=== PATIENT | female | born 1985 | race Caucasian/White ===

== ENCOUNTER 2017-05-06 07:16 | Inpatient (IN) | payer OTHER ==
--- NOTE | 2017-05-06 05:56 | PCM.LDHP ---
L&D History of Present Illness - General Date of Service: 05/06/17 Admit Problem/Dx: Admission Diagnosis/Problem Admission Diagnosis/Problem 05/06/17 05:34 40-2/7 week intrauterine , induction of labor Source of Information: Patient History Limitations: Reports: No Limitations - History of Present Illness Introduction:: Colette is a 32-year-old 3 para 1012 white female who is admitted for induction of labor. She is 40-2/7 weeks with an VINCENT of 05/04/2017 as based upon a certain last menstrual period which started on 10/10/2016. Dating is supported by 2 ultrasounds done on 10/10/2016 and 12/24/2016. When seen last on 04/30/2017 patient was 2+ centimeters dilated, 90% effaced, very soft, -3 station, mid position. Induction land's with artificial rupture membranes with Pitocin augmentation as indicated. The patient has had a relatively unremarkable course. [employer] history 3 para 1012. Patient's had 2 previous pregnancies 1 with twins which delivered on 09/28/2014 at 37-2/7 weeks gestational age after 16 hours labor she delivered weighing 4 lbs. 9 oz. and 5 lbs. 6 oz. via normal spontaneous vaginal delivery. She had an epidural with labor. She did have retained placenta hemorrhage and received 2 units of blood. 2 children's names are Deng and Danelle. Patient also had a miscarriage in June 2013, first trimester, aborted spontaneously. Her menarche was at approximately age 11 her last menstrual period was definite and patient's resulted resulted from invitro fertilization. Her course was relatively unremarkable. She is a centering patient. She declined genetic evaluation. Inverted depression screening score was 01 skill 30 on 12/25/2016. She did have Gardnerella vaginalis which was treated. She is group B strep positive on urine culture results. She is hypothyroid and on replacement therapy. He has been clinically euthyroid throughout the . Patient plans to do cord blood banking. Patient plans to nurse. She wishes to use epidural again with this labor. She is rubella nonimmune and therefore is a candidate for measles, mumps and rubella vaccination in . Patient was seen early in the with first visit on 10/10/2016 at 10-4/7 weeks. She had excellent weight gain during the course of the from 124 -146.8 pounds 422.8 pound weight gain. Her vital signs remained stable throughout the course and her fundal height growth was appropriate. labs: Blood is A+ with a negative antibiotic screen. First hemoglobin was 13.1 g/dL and platelets were 379,000. She is rubella nonimmune. RPR is nonreactive. Strep screen was positive on urine culture at first visit. Gardnerella vaginalis was also identified. This was treated. Her initial TSH was 1.1 daily units per liter which was normal. Second trimester labs included hemoglobin which is normal at 12.3 g/dL and a platelet count 297,000. One-hour GTT was 106. Group B strep screen again was positive. Allergies wheat, dairy, right eye N [place]. No known drug allergies Medications: 1. vitamins daily 2. Levothyroxine 25 g daily Past medical history: 1. Hypothyroidism on replacement meds with clinically euthyroid status 2. Spontaneous 2012 3. Vaginal delivery of twin boys 2014 4. 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 In vitro fertilization with resulting 5. Gluten sensitivity 6. History of retained placenta last delivery with hemorrhage and transfusion. Past surgical history: 1. Laparoscopy, lysis of adhesions and creation paula-fimbria 2. D&C 3. Hysteroscopy 4. Chromotubation 5. Tonsillectomy 6. Left scopic cholecystectomy 7. [place] teeth extraction Family history: Mother with type 2 diabetes and hypertension. Father with hypertension and thyroid cancer. Patient has 10 brothers-one with seizure disordertrauma induced. 6 sisters2 with hypothyroidism. Maternal grandmother is secondary to breast cancer. Maternal grandfather cause unknown. Paternal grand mother , cause unknown. Paternal grand father , cause unknown. Social history: Patient is , is Fernando.. She lives in [place], works for [employer]. She does not use any significant amounts of alcohol drugs or tobacco. Review of systems: In general patient is having no concerns. Baby is been active Heart: No chest pain or exercise intolerance Respiratory: No shortness of breath or infectious symptoms Breasts: Changes associated . Patient does plan to breast-feed. GI: Negative : Normal changes associated . Musculoskeletal: Negative. Occasional edema noted. Neurological: Negative Physical exam: On last evaluation clinic patients weight was 146.8 with pregravid weight seen 124. Her blood pressure 112/58 and heart rate is 127. In general patient is a well-developed, well-nourished, pleasant white female in no acute distress. She is alert and oriented 3 and appears of stated age and a good historian. Skin is warm and dry without lesions. HEENT, neck and back within normal limits Lungs are clear with good breath sounds in all lung arciniega. Cardiovascular exam shows regular rate and rhythm without murmurs. Breast exam deferred Having been done at first visit and found to be normal. Abdomen is protuberant Jeanine's last fundal height of 37+ centimeters, baby in vertex presentation by Gorge maneuvers. Cervical exam shows cervix to be 2+ centimeters dilated, 90% effaced, very soft , -3, mid position with head well applied to the cervix. Extremities and neurological exam are grossly within normal limits. - Related Data Allergies/Adverse Reactions: Allergies Allergy/AdvReac Type Severity Reaction Status Date / Time wheat Allergy Intermediate Indigestion Verified 09/27/14 17:11 Dairy Products Allergy Indigestion Verified 09/27/14 17:11 cantaloupe Allergy Indigestion Uncoded 09/27/14 17:11 Home Medications: Home Meds Levothyroxine 25 mcg PO DAILY 04/08/14 [History] PNV95/Ferrous Fumarate/FA [ Tablet] 1 tab PO DAILY 04/08/14 [History] Ibuprofen [Motrin] 600 mg PO Q4H PRN #30 tablet 10/01/14 [Rx] Lanolin [Lansinoh HPA] 1 applic TOP ASDIRECTED PRN #30 crm 10/01/14 [Rx] Past Medical History Other OB/BYN History: bilateral salpingotomy, invitro fertilization, Other Endocrine/Metabolic History: on levothyroxine 25mcg for marlyn 1 year Social & Family History - Tobacco Use Smoking Status *Q: Former Smoker (quit 2004) Second Hand Smoke Exposure: No - Recreational Drug Use Recreational Drug Use: No H&P Review of Systems - Review of Systems: Review Of Systems: See Below L&D Exam - Exam Exam: See Below Problem List Initiated/Reviewed/Updated: Yes Assessment/Plan Comment:: Assessment: 1. 40-2/7 week intrauterine , admitted for induction of labor 2. Group B strep positive status-candidate for prophylaxis with ampicillin 3. Rubella nonimmune-candidate for MMR 4. Desires epidural in labor and delivery for analgesia 5. Patient plans to breast-feed 6. The is result of In vitro fertilization 7. Patient plans to bank cord blood. Will bring kit with her to the hospital. 8. Hypothyroidism-on replacement and clinically euthyroid 9. Patient participated in centering program 10. Patient declined genetic evaluation Plan: 1. Artificial rupture membranes induction of labor, Pitocin augmentation as necessary. 2. Ampicillin per protocol for group B strep positive status 3. Epidural in labor delivery when necessary per patient desire 4. Support breast-feeding decision 5. Have lab participate with cord blood banking by drying mom's blood. 6. MMR after delivery
[2017-05-06] MEDS ORDERED: ePHEDrine 50 MG/ML SDV IVPUSH PRN (07:52)
[2017-05-06] MEDS ORDERED: diphenhydrAMINE 50 MG/ML SDV IVPUSH PRN (07:52)
[2017-05-06] MEDS ORDERED: fentaNYL 100 MCG/2 ML SDV EPIDUR PRN (07:52)
[2017-05-06] MEDS ORDERED: Bupivacaine/fentaNYL/NS 100 ML Bag EPIDUR SCH (08:00)
[2017-05-06] MEDS ORDERED: Ondansetron 4 MG/2 ML SDV IVPUSH PRN (09:11)
[2017-05-06] MEDS ORDERED: Lidocaine 1% 50 ML MDV INJECT ONE (09:11)
[2017-05-06] MEDS ORDERED: Sodium Chloride 0.9% 10 ML Syringe FLUSH PRN (09:11)
[2017-05-06] MEDS ORDERED: Nalbuphine 20 MG/1 ML Amp IVPUSH PRN (09:11)
[2017-05-06] MEDS ORDERED: Ampicillin 2 GM in Sodium Chloride 0.9% 100 ML IV ONE (09:11)
[2017-05-06] MEDS: Oxytocin/Lactated Ringers 10 UNIT/1,000 ML BAG IV SCH ×2 (09:44→15:46)
[2017-05-06] MEDS: Lactated Ringers 1,000 ML IV SCH ×3 (09:44→13:29)
--- NOTE | 2017-05-06 11:57 | PCM.PREANE ---
Preanesthetic Assessment - Anesthesia/Transfusion/Family Hx Anesthesia History: Prior Anesthesia Without Reaction Family History of Anesthesia Reaction: No Transfusion History: Prior Transfusion Without Reaction - Review of Systems General: No Symptoms Pulmonary: No Symptoms Cardiovascular: No Symptoms Gastrointestinal: No Symptoms Neurological: No Symptoms Other: Reports: None - Physical Assessment Pulse: 92 O2 Sat by Pulse Oximetry: 97 Respiratory Rate: 18 Blood Pressure: 118/75 Temperature: 37.3 C Vital Signs: Last Vital Signs Temp 37.6 C 05/06/17 09:30 Pulse 92 05/06/17 09:30 Resp 18 05/06/17 09:30 BP 118/75 05/06/17 09:30 Pulse Ox Height: 1.55 m Weight: 65.635 kg ASA Class: 2 Mental Status: Alert & Oriented x3 Airway Class: Mallampati = 1 Dentition: Reports: Normal Dentition Thyro-Mental Finger Breadths: 3 Mouth Opening Finger Breadths: 3 ROM/Head Extension: Full Lungs: Clear to Auscultation, Normal Respiratory Effort Cardiovascular: Regular Rate, Regular Rhythm - Lab Values: Laboratory Last Values WBC 10.67 K/mm3 (3.98-10.04) H 05/06/17 08:00 RBC 4.44 M/mm3 (3.98-5.22) 05/06/17 08:00 Hgb 13.4 gm/L (11.2-15.7) 05/06/17 08:00 Hct 39.8 % (34.1-44.9) 05/06/17 08:00 MCV 89.6 fl (79.4-94.8) 05/06/17 08:00 MCH 30.2 pg (25.6-32.2) 05/06/17 08:00 MCHC 33.7 g/dl (32.2-35.5) 05/06/17 08:00 RDW Std Deviation 41.8 fL (36.4-46.3) 05/06/17 08:00 Plt Count 284 K/mm3 (182-369) 05/06/17 08:00 MPV 12.3 fl (9.4-12.3) 05/06/17 08:00 Neut % (Auto) 73.7 % (34.0-71.1) H 05/06/17 08:00 Lymph % (Auto) 18.6 % (19.3-51.7) L 05/06/17 08:00 [place] % (Auto) 6.5 % (4.7-12.5) 05/06/17 08:00 Eos % (Auto) 0.5 (0.7-5.8) L 05/06/17 08:00 Baso % (Auto) 0.2 % (0.1-1.2) 05/06/17 08:00 Neut # (Auto) 7.88 K/mm3 (1.56-6.13) H 05/06/17 08:00 Lymph # (Auto) 1.98 K/mm3 (1.18-3.74) 05/06/17 08:00 [place] # (Auto) 0.69 K/mm3 (0.24-0.36) H 05/06/17 08:00 Eos # (Auto) 0.05 K/mm3 (0.04-0.36) 05/06/17 08:00 Baso # (Auto) 0.02 K/mm3 (0.01-0.08) 05/06/17 08:00 - Allergies Allergies/Adverse Reactions: Allergies Allergy/AdvReac Type Severity Reaction Status Date / Time wheat AdvReac Intermediate Indigestion Verified 05/06/17 07:54 Dairy Products AdvReac Indigestion Verified 05/06/17 07:54 - Anesthesia Plan Pre-Op Medication Ordered: None - Acknowledgements Anesthesia Type Planned: Epidural Pt an Appropriate Candidate for the Planned Anesthesia: Yes Alternatives and Risks of Anesthesia Discussed w Pt/Guardian: Yes Pt/Guardian Understands and Agrees with Anesthesia Plan: Yes PreAnesthesia Questionnaire HEENT History: Reports: Impaired Vision Gastrointestinal History: Reports: GERD [employer] MANAGER History: Reports: , Spontaneous , Other (See Below) Other OB/BYN History: IVF, hx retained placenta Endocrine/Metabolic History: Reports: Hypothyroidism Other Endocrine/Metabolic History: on levothyroxine 25mcg for marlyn 1 year - Infectious Disease History Infectious Disease History: Reports: Human Papilloma Virus (HPV), Other (See Below) Other Infectious Disease History: hx chlamydia - Past Surgical History HEENT Surgical History: Reports: Oral Surgery, Tonsillectomy GI Surgical History: Reports: Cholecystectomy Female Surgical History: Reports: D&C, Other (See Below) Other Female Surgeries/Procedures: Salpingectomy, chromotubation, hysteroscopy - SUBSTANCE USE Smoking Status *Q: Never Smoker Tobacco Use Within Last Twelve Months: No Second Hand Smoke Exposure: No Recreational Drug Use History: No - HOME MEDS Home Medications: Home Meds Levothyroxine 25 mcg PO DAILY 04/08/14 [History] PNV95/Ferrous Fumarate/FA [ Tablet] 1 tab PO DAILY 04/08/14 [History] - CURRENT (IN HOUSE) MEDS Current Meds: Current Medications Diphenhydramine HCl (Benadryl) 25 mg IVPUSH Q6H PRN PRN Reason: Itching Ephedrine Sulfate (Ephedrine Sulfate) 5 mg IVPUSH ASDIRECTED PRN PRN Reason: HYPOTENTSION Fentanyl (Sublimaze) 100 mcg EPIDUR Q3H PRN PRN Reason: PAIN Last Admin: 05/06/17 11:46 Dose: 100 mcg Fentanyl/Bupivacaine HCl (Fentanyl/Bupivacaine/Ns 2 Mcg-0.125% 100 Ml) 100 ml EPIDUR ASDIRECTED ANY Last Admin: 05/06/17 11:47 Dose: 100 ml Ampicillin Sodium 1 gm/ Sodium (Chloride) 100 mls @ 200 mls/hr IV Q4H ANY Lactated Ringer's (Ringers, Lactated) 1,000 mls @ 100 mls/hr IV ASDIRECTED ANY Last Admin: 05/06/17 09:44 Dose: 100 mls/hr Oxytocin/Lactated Ringer's (Pitocin In Lr 10 Units/1,000 Ml) 10 unit in 1,000 mls @ 12 mls/hr IV TITRATE ANY; 2 MUNITS/MIN PRN Reason: Protocol Last Titration: 05/06/17 10:32 Dose: 8 munits/min, 48 mls/hr Nalbuphine HCl (Nubain) 10 mg IVPUSH Q2H PRN PRN Reason: Pain (moderate 4-6) Ondansetron HCl (Zofran) 4 mg IVPUSH Q4H PRN PRN Reason: Nausea/Vomiting Sodium Chloride (Saline Flush) 10 ml FLUSH ASDIRECTED PRN PRN Reason: Keep Vein Open Discontinued Medications Ampicillin Sodium 2 gm/ Sodium (Chloride) 100 mls @ 200 mls/hr IV ONETIME ONE Stop: 05/06/17 09:40 Last Admin: 05/06/17 09:42 Dose: 200 mls/hr Lidocaine HCl (Xylocaine 1%) 10 ml INJECT ONETIME ONE Stop: 05/06/17 09:12
[2017-05-06] MEDS: Ampicillin 1 GM in Sodium Chloride 0.9% 100 ML IV SCH ×2 (13:29→19:24)
--- NOTE | 2017-05-06 17:23 | PCM.SN ---
- Free Text/Narrative Note: Colette is a 32-year-old 3 para 2013 female who was admitted on the a.m. of 05/06/2017 for elective induction of labor at 40-2/7 weeks gestational age. Initial cervical evaluation showed 3 cm, 90% effacement, very soft consistency, mid position, -4 station. Bag of ruvalcaba was intact. Baby is spell presentation. Her VINCENT was 05/04/2017 based upon in vitro fertilization dating. She was started on Pitocin to bring the baby's head down against the cervix and artificial rupture membranes was performed and resulted in clear amniotic fluid. Patient progressed in labor and became complete at approximately 1440 hrs. And pushing and pushed through 2 contractions with successful delivery of a viable, goodman, male infant with Apgars of 9 and 9, weight of 3030 g (6 pounds 10.9 ounces), length 20 inches with delivery occurring in an occiput anterior position. The perineum was intact and no lacerations were present. Pitocin was administered IV after delivery of baby to facilitate increase in uterine tone and decrease the likelihood of bleeding. The umbilical cord had 3 vessels, was clamped 2 and cut by the father. Cord bloods obtained. The placenta was found to be mildly adherent but delivered intact and complete. It was discarded patient desire. Estimated blood loss was 100 mL. Patient plans to breast-feed. Condition: Good
[2017-05-06] MEDS ORDERED: Witch Hazel Medicated Pads 100/Jar TOP PRN (19:19)
[2017-05-06] MEDS ORDERED: Lanolin 100% Cream 7 GM Tube TOP PRN (19:19)
[2017-05-06] MEDS ORDERED: Benzocaine/Menthol 20%-0.5% Spray 56 GM Canister TOP PRN (19:19)
[2017-05-06] MEDS ORDERED: Docusate Sodium 100 MG Cap PO PRN (19:19)
[2017-05-06] MEDS ORDERED: Acetaminophen 325 MG Tab PO PRN (19:19)
[2017-05-06] MEDS ORDERED: Ibuprofen 600 MG Tab PO PRN (19:19)
[2017-05-06] MEDS ORDERED: Bupivacaine 0.25% 10 ML SDV ONE (22:22)
--- NOTE | 2017-05-07 07:54 | PCM.SN ---
- Free Text/Narrative Note: PPD#1 patient is doing well. Minimal lochia, nursing well. She is ambulating without problemsand and nursing without concerns. Afebrile, VSS abdomen-soft,NT legs- NT Hb-11.9 Plts 246 A/P: PP day #1 good progress. Routine cares.
--- NOTE | 2017-05-07 08:48 | PCM48HPAN ---
Post Anesthesia Note - EVALUATION WITHIN 48HRS OF ANESTHETIC Vital Signs in Normal Range: Yes Patient Participated in Evaluation: Yes Respiratory Function Stable: Yes Airway Patent: Yes Cardiovascular Function Stable: Yes Hydration Status Stable: Yes Pain Control Satisfactory: Yes Nausea and Vomiting Control Satisfactory: Yes Mental Status Recovered: Yes
[2017-05-07] MEDS: Prenatal Multivitamin with Calcium/Folic Acid/Iron Tab PO SCH (09:10)
[2017-05-08 05:31] VITALS: BP 111/55
--- NOTE | 2017-05-08 05:53 | PCM.DCSUM1 ---
Discharge Summary - Hospital Course Free Text/Narrative:: Colette is a 32-year-old 3 para 2013 female who was admitted on the a.m. of 05/06/2017 for elective induction of labor at 40-2/7 weeks gestational age. Initial cervical evaluation showed 3 cm, 90% effacement, very soft consistency, mid position, -4 station. Bag of ruvalcaba was intact. Baby is spell presentation. Her VINCENT was 05/04/2017 based upon in vitro fertilization dating. She was started on Pitocin to bring the baby's head down against the cervix and artificial rupture membranes was performed and resulted in clear amniotic fluid. Patient progressed in labor and became complete at approximately 1440 hrs. And pushing and pushed through 2 contractions with successful delivery of a viable, goodman, male with Apgars of 9 and 9, weight of 3030 g (6 pounds 10.9 ounces), length 20 inches with delivery occurring in an occiput anterior position. The perineum was intact and no lacerations were present. Pitocin was administered IV after delivery of baby to facilitate increase in uterine tone and decrease the likelihood of bleeding. The umbilical cord had 3 vessels, was clamped 2 and cut by the father. Cord bloods obtained. The placenta was found to be mildly adherent but delivered intact and complete. It was discarded patient desire. Estimated blood loss was 100 mL. Patient plans to breast-feed. patient has done well. She is nursing without concerns. She is ambulating well and has minimal lochia. Her vital signs were stable and patient has been afebrile. She is desiring to go home on day 2. - Discharge Data Discharge Date: 05/08/17 Discharge Disposition: Home, Self-Care 01 Condition: Good - Patient Instructions Diet: Regular Diet as Tolerated (Nursing diet with increased calories and calcium as recommended) Activity: As Tolerated (No intercourse or tampons until bleeding resolves) Driving: May Drive Today Showering/Bathing: May Shower (May take a bath) Notify Provider of: Fever, Increased Pain, Swelling and Redness, Nausea and/or Vomiting - Discharge Plan Home Medications: Home Meds Levothyroxine 25 mcg PO DAILY 04/08/14 [History] PNV95/Ferrous Fumarate/FA [ Tablet] 1 tab PO DAILY 04/08/14 [History] Acetaminophen [Tylenol] 650 mg PO Q4H PRN tablet 05/08/17 [Rx] Ibuprofen [IJD: Ibuprofen] 600 mg PO Q4H PRN tablet 05/08/17 [Rx] Referrals: Zeb Castillo MD [Primary Care Provider] - (Return to clinicDr. Castillo2 weeks.) - Discharge Summary/Plan Comment DC Time >30 min.: No Discharge Summary/Plan Comment: Discharge instructions: 1. Discharge home 2. Diet, activity and follow-up discussed with patient. Recommend nursing diet with increased calories and calcium. 3. Precautions given concern increased pain, bleeding, temperature, signs/ symptoms of DVT/PE. 4. Medications per home medication was printed, discussed with and given to the patient. 5. Return to clinic-Dr. Castillo[facility] in 2 weeks. Diagnosis: Term -delivered Condition: Good - Patient Data Vitals - Most Recent: Last Vital Signs Temp 36.3 C 05/08/17 03:58 Pulse 70 05/08/17 03:58 Resp 16 05/08/17 03:58 BP 111/55 L 05/08/17 03:58 Pulse Ox 96 05/08/17 03:58 Weight - Most Recent: 65.635 kg I&O - Last 24 hours: Intake & Output 05/07/17 05/07/17 05/08/17 14:59 22:59 06:59 Intake Total 0 180 Balance 0 180 Lab Results - Last 24 hrs: Laboratory Results - last 24 hr 05/07/17 Range/Units 05:30 WBC 14.69 H (3.98-10.04) K/mm3 RBC 3.93 L (3.98-5.22) M/mm3 Hgb 11.9 (11.2-15.7) gm/L Hct 35.8 (34.1-44.9) % MCV 91.1 (79.4-94.8) fl MCH 30.3 (25.6-32.2) pg MCHC 33.2 (32.2-35.5) g/dl RDW Std Deviation 41.7 (36.4-46.3) fL Plt Count 246 (182-369) K/mm3 MPV 11.7 (9.4-12.3) fl Med Orders - Current: Current Medications Acetaminophen (Tylenol) 650 mg PO Q4H PRN PRN Reason: mild pain or fever Benzocaine/Menthol (Dermoplast Pain Relief [place]) 0 gm TOP ASDIRECTED PRN PRN Reason: Perineal Comfort Measure Docusate Sodium (Colace) 100 mg PO BID PRN PRN Reason: Constipation Emollient Ointment (Lansinoh Hpa) 0 gm TOP ASDIRECTED PRN PRN Reason: Sore Nipples Ibuprofen (Motrin) 600 mg PO Q4H PRN PRN Reason: Mild pain or fever Prenat Multivit/[place]/Iron/Folic Ac ( Plus Iron) 1 each PO DAILY [facility] Last Admin: 05/07/17 09:10 Dose: 1 each Witch Mechelle (Tucks) 1 pad TOP ASDIRECTED PRN PRN Reason: Hemorrhoid pain Discontinued Medications Diphenhydramine HCl (Benadryl) 25 mg IVPUSH Q6H PRN PRN Reason: Itching Ephedrine Sulfate (Ephedrine Sulfate) 5 mg IVPUSH ASDIRECTED PRN PRN Reason: HYPOTENTSION Fentanyl (Sublimaze) 100 mcg EPIDUR Q3H PRN PRN Reason: PAIN Last Admin: 05/06/17 11:46 Dose: 100 mcg Fentanyl/Bupivacaine HCl (Fentanyl/Bupivacaine/Ns 2 Mcg-0.125% 100 Ml) 100 ml EPIDUR ASDIRECTED [facility] Last Admin: 05/06/17 11:47 Dose: 100 ml Ampicillin Sodium 2 gm/ Sodium (Chloride) 100 mls @ 200 mls/hr IV ONETIME ONE Stop: 05/06/17 09:40 Last Admin: 05/06/17 09:42 Dose: 200 mls/hr Ampicillin Sodium 1 gm/ Sodium (Chloride) 100 mls @ 200 mls/hr IV Q4H [facility] Last Admin: 05/06/17 19:24 Dose: Not Given Lactated Ringer's (Ringers, Lactated) 1,000 mls @ 100 mls/hr IV ASDIRECTED [facility] Last Admin: 05/06/17 13:29 Dose: 100 mls/hr Oxytocin/Lactated Ringer's (Pitocin In Lr 10 Units/1,000 Ml) 10 unit in 1,000 mls @ 12 mls/hr IV TITRATE ANY; 2 MUNITS/MIN PRN Reason: Protocol Last Admin: 05/06/17 15:46 Dose: 999 mls/hr Lidocaine HCl (Xylocaine 1%) 10 ml INJECT ONETIME ONE Stop: 05/06/17 09:12 Last Admin: 05/06/17 15:55 Dose: Not Given Nalbuphine HCl (Nubain) 10 mg IVPUSH Q2H PRN PRN Reason: Pain (moderate 4-6) Ondansetron HCl (Zofran) 4 mg IVPUSH Q4H PRN PRN Reason: Nausea/Vomiting Sodium Chloride (Saline Flush) 10 ml FLUSH ASDIRECTED PRN PRN Reason: Keep Vein Open *Q Meaningful Use (DIS) - VTE *Q VTE Criteria *Q: - Stroke *Q Stroke Criteria *Q: - AMI *Q AMI Criteria *Q:
[2017-05-08] MEDS ORDERED: Measles, Mumps & Rubella Vaccine 0.5 ML SDV SUBCUT ONE (09:13)
[2017-05-08] MEDS: Prenatal Multivitamin with Calcium/Folic Acid/Iron Tab PO SCH (09:33)
== END 2017-05-08 09:30 | disposition home or self-care (01) | DRG 775 ==
LOC: JD.OB 07:16 → OBSVTOIN 14:49
PROVIDERS: ADMIT Obstetrics & Gynecology; ATTEND Obstetrics & Gynecology
PROC: 10E0XZZ Delivery of Products of Conception, External Approach (ICD-10-PCS; principal; 2017-05-06)
PROC: 10907ZC Drainage of Amniotic Fluid, Therapeutic from Products of Conception, Via Natural or Artificial Opening (ICD-10-PCS; 2017-05-06)
PROC: 3E033VJ Introduction of Other Hormone into Peripheral Vein, Percutaneous Approach (ICD-10-PCS; 2017-05-06)
PROC: 00HU33Z Insertion of Infusion Device into Spinal Canal, Percutaneous Approach (ICD-10-PCS; 2017-05-06)
PROC: 6A550ZT Pheresis of Cord Blood Stem Cells, Single (ICD-10-PCS; 2017-05-06)
DX: O99.824 Streptococcus B carrier state complicating childbirth (principal); Z37.0 Single live birth; O99.284 Endocrine, nutritional and metabolic diseases complicating childbirth; Z3A.40 40 weeks gestation of pregnancy; E03.9 Hypothyroidism, unspecified; Z23 Encounter for immunization; Z87.891 Personal history of nicotine dependence; N97.9 Female infertility, unspecified; B94.8 Sequelae of other specified infectious and parasitic diseases
CPT/HCPCS: 01967; 36415; 51702; 59409; 85025; 85027; 90471; 90707; A9270-GY; J0290; J2590; J3010; J7030; J7120

== ENCOUNTER 2017-06-05 06:33 | Day surgery (SDC) | payer OTHER ==
[~2017-06-05 06:33] MED LIST: Lactated Ringers 1,000 ML IV SCH; Lidocaine 1%/Sod Bicarbonate in NS 8.4% 1 ML Syringe IDERM PRN; Sodium Chloride 0.9% 10 ML Syringe FLUSH PRN
[2017-06-05] MEDS ORDERED: Midazolam 1 MG/ML 2 ML SDV ONE (07:11)
[2017-06-05] MEDS ORDERED: Propofol 200 MG/20 ML SDV ONE (07:11)
[2017-06-05] MEDS ORDERED: fentaNYL 100 MCG/2 ML SDV ONE (07:11)
[2017-06-05] MEDS ORDERED: Ketorolac 30 MG/ML SDV ONE (07:15)
[2017-06-05] MEDS ORDERED: Ondansetron 4 MG/2 ML SDV ONE (07:15)
[2017-06-05] MEDS ORDERED: Dexamethasone 4 MG/ML 5 ML MDV ONE (07:15)
[2017-06-05] MEDS ORDERED: Lidocaine 1% 4 ML ONE (07:16)
[2017-06-05] MEDS ORDERED: Ketamine 500 mg/10 ML MDV ONE (07:17)
--- NOTE | 2017-06-05 07:25 | PCM.PREANE ---
Preanesthetic Assessment - Procedure Proposed Procedure: Uterine suction and D&C - Anesthesia/Transfusion/Family Hx Anesthesia History: Prior Anesthesia Without Reaction Family History of Anesthesia Reaction: No Transfusion History: Prior Transfusion Without Reaction Intubation History: Unknown - Review of Systems General: No Symptoms Pulmonary: No Symptoms Cardiovascular: No Symptoms Gastrointestinal: No Symptoms Neurological: No Symptoms Other: Reports: Thyroid Problems (hypothyroid) - Physical Assessment NPO Status Date: 06/04/17 NPO Status Time: 19:00 O2 Sat by Pulse Oximetry: 100 Respiratory Rate: 16 Vital Signs: Last Vital Signs Temp 37.2 C 06/05/17 06:40 Pulse 70 06/05/17 06:40 Resp 16 06/05/17 06:40 BP 103/65 06/05/17 06:40 Pulse Ox 100 06/05/17 06:40 Height: 1.55 m Weight: 56.699 kg ASA Class: 1 Mental Status: Alert & Oriented x3 Airway Class: Mallampati = 1 Dentition: Reports: Normal Dentition Thyro-Mental Finger Breadths: 3 Mouth Opening Finger Breadths: 3 ROM/Head Extension: Full Lungs: Clear to Auscultation, Normal Respiratory Effort Cardiovascular: Regular Rate, Regular Rhythm - Lab Values: Laboratory Last Values WBC 6.58 K/mm3 (3.98-10.04) 06/04/17 14:45 RBC 4.48 M/mm3 (3.98-5.22) 06/04/17 14:45 Hgb 13.5 gm/L (11.2-15.7) 06/04/17 14:45 Hct 40.3 % (34.1-44.9) 06/04/17 14:45 MCV 90.0 fl (79.4-94.8) 06/04/17 14:45 MCH 30.1 pg (25.6-32.2) 06/04/17 14:45 MCHC 33.5 g/dl (32.2-35.5) 06/04/17 14:45 RDW Std Deviation 39.5 fL (36.4-46.3) 06/04/17 14:45 Plt Count 340 K/mm3 (182-369) 06/04/17 14:45 MPV 10.7 fl (9.4-12.3) 06/04/17 14:45 Neut % (Auto) 53.2 % (34.0-71.1) 06/04/17 14:45 Lymph % (Auto) 36.6 % (19.3-51.7) 06/04/17 14:45 [place] % (Auto) 7.9 % (4.7-12.5) 06/04/17 14:45 Eos % (Auto) 2.0 (0.7-5.8) 06/04/17 14:45 Baso % (Auto) 0.3 % (0.1-1.2) 06/04/17 14:45 Neut # (Auto) 3.50 K/mm3 (1.56-6.13) 06/04/17 14:45 Lymph # (Auto) 2.41 K/mm3 (1.18-3.74) 06/04/17 14:45 [place] # (Auto) 0.52 K/mm3 (0.24-0.36) H 06/04/17 14:45 Eos # (Auto) 0.13 K/mm3 (0.04-0.36) 06/04/17 14:45 Baso # (Auto) 0.02 K/mm3 (0.01-0.08) 06/04/17 14:45 - Allergies Allergies/Adverse Reactions: Allergies Allergy/AdvReac Type Severity Reaction Status Date / Time wheat AdvReac Intermediate Indigestion Verified 05/06/17 07:54 Dairy Products AdvReac Indigestion Verified 05/06/17 07:54 - Blood Blood Available: No Product(s) Available: None - Anesthesia Plan Pre-Op Medication Ordered: None - Acknowledgements Anesthesia Type Planned: MAC Pt an Appropriate Candidate for the Planned Anesthesia: Yes Alternatives and Risks of Anesthesia Discussed w Pt/Guardian: Yes Pt/Guardian Understands and Agrees with Anesthesia Plan: Yes PreAnesthesia Questionnaire HEENT History: Reports: Impaired Vision Gastrointestinal History: Reports: GERD SOCIAL MEDIA ASSISTANT History: Reports: , Spontaneous , Other (See Below) Other OB/BYN History: IVF, hx retained placenta Endocrine/Metabolic History: Reports: Hypothyroidism Other Endocrine/Metabolic History: on levothyroxine 25mcg for marlyn 1 year - Infectious Disease History Infectious Disease History: Reports: Human Papilloma Virus (HPV), Other (See Below) Other Infectious Disease History: hx chlamydia - Past Surgical History HEENT Surgical History: Reports: Oral Surgery, Tonsillectomy GI Surgical History: Reports: Cholecystectomy Female Surgical History: Reports: D&C, Other (See Below) Other Female Surgeries/Procedures: Salpingectomy, chromotubation, hysteroscopy - SUBSTANCE USE Smoking Status *Q: Never Smoker Tobacco Use Within Last Twelve Months: No Second Hand Smoke Exposure: No Recreational Drug Use History: No - HOME MEDS Home Medications: Home Meds Levothyroxine 25 mcg PO DAILY 04/08/14 [History] PNV95/Ferrous Fumarate/FA [ Tablet] 1 tab PO DAILY 04/08/14 [History] - CURRENT (IN HOUSE) MEDS Current Meds: Current Medications Lactated Ringer's (Ringers, Lactated) 1,000 mls @ 125 mls/hr IV ASDIRECTED ANY Stop: 06/05/17 23:00 Last Admin: 06/05/17 06:50 Dose: 125 mls/hr Lidocaine/Sodium Bicarbonate (Buffered Lidocaine 1% In Ns 8.4%) 0.25 ml IDERM ONETIME PRN PRN Reason: Prior to IV Start Stop: 06/05/17 18:00 Last Admin: 06/05/17 06:50 Dose: 0.25 ml Sodium Chloride (Saline Flush) 10 ml FLUSH ASDIRECTED PRN PRN Reason: Keep Vein Open Stop: 06/05/17 18:00 Discontinued Medications Dexamethasone (Dexamethasone) Confirm Administered Dose 20 mg .ROUTE .STK-MED ONE Stop: 06/05/17 07:16 Fentanyl (Sublimaze) Confirm Administered Dose 100 mcg .ROUTE .STK-MED ONE Stop: 06/05/17 07:12 Lidocaine HCl (Xylocaine-Mpf 1%) Confirm Administered Dose 4 mls @ as directed .ROUTE .STK-MED ONE Stop: 06/05/17 07:17 Ketamine HCl (Ketalar) Confirm Administered Dose 500 mg .ROUTE .STK-MED ONE Stop: 06/05/17 07:18 Ketorolac Tromethamine (Toradol) Confirm Administered Dose 30 mg .ROUTE .STK- MED ONE Stop: 06/05/17 07:16 Midazolam HCl (Versed 1 Mg/Ml) Confirm Administered Dose 2 mg .ROUTE .STK-MED ONE Stop: 06/05/17 07:12 Ondansetron HCl (Zofran) Confirm Administered Dose 4 mg .ROUTE .STK-MED ONE Stop: 06/05/17 07:16 Propofol (Diprivan 20 Ml) Confirm Administered Dose 200 mg .ROUTE .STK-MED ONE Stop: 06/05/17 07:12
[2017-06-05] MEDS ORDERED: ceFAZolin 1 GM Vial ONE (07:43)
[2017-06-05] MEDS ORDERED: Acetaminophen/oxyCODONE 325-5 MG Tab PO PRN (07:52)
[2017-06-05] MEDS ORDERED: Ondansetron 4 MG/2 ML SDV IVPUSH PRN (07:52)
--- NOTE | 2017-06-05 07:57 | PCM.OPNOTE ---
- General Post-Op/Procedure Note Date of Surgery/Procedure: 06/05/17 Operative Procedure(s): Dilation and suction curettage Findings: Small amount of tissue within the endometrial cavity consistent with products of conception. Pre Op Diagnosis: Abnormal uterine bleeding, suspected retained products of conception Post-Op Diagnosis: Same Anesthesia Technique: MAC Primary Surgeon: Zeb Castillo Fluid Replacement, Intraop: 700 EBL in mLs: 10 Complications: None Condition: Good Free Text/Narrative:: Surgery duration: 6 minutes Procedure: The patient was taken to the operating room and placed in a supine position operating table. She received 2 g of Ancef preoperatively for infection prophylaxis. After adequate MAC anesthesia patient was placed in a dorsal lithotomy position. A weighted speculum was placed in the vagina. Cervix is found to be dilated to approximately 1+ centimeters. Uterus was sounded to approximately 8 cm. It was found to be anterior and mid position. An 8 mm suction curette was then introduced in routine fashion the endometrial cavity was evacuated. Moderate amount tissue was obtained. Findings consistent with products of conception. A medium size sharp curet was introduced and very careful fashion the endometrial cavity was curetted. The endometrial cavity at this point appeared to be clear of any further tissue. The suction curet was then reintroduced and small and blood was removed. No further tissue was removed. This point the D&C was discontinued. The single-toothed tenaculum used to stabilize the anterior lip the cervix was removed. Blood was removed from the vagina with a stick sponge and the weighted speculum was removed from the vagina. Anesthesia was discontinued. The patient was discharged from the operating room in good condition.
[2017-06-05] MEDS ORDERED: fentaNYL 100 MCG/2 ML SDV IVPUSH PRN (07:58)
--- NOTE | 2017-06-05 08:00 | PCM48HPAN ---
Post Anesthesia Note - EVALUATION WITHIN 48HRS OF ANESTHETIC Vital Signs in Normal Range: Yes Patient Participated in Evaluation: Yes Respiratory Function Stable: Yes Airway Patent: Yes Cardiovascular Function Stable: Yes Hydration Status Stable: Yes Pain Control Satisfactory: Yes Nausea and Vomiting Control Satisfactory: Yes Mental Status Recovered: Yes Pulse Rate: 95 SaO2: 96 Resp Rate: 16 Temperature: 37.4 C Blood Pressure: 117/80 - COMMENTS/OBSERVATIONS Free Text/Narrative:: no anesthetic complications
[2017-06-05 08:39] VITALS: BP 109/79
== END 2017-06-05 08:50 | disposition home or self-care (01) ==
LOC: JD.SDS 06:33
PROVIDERS: ATTEND Obstetrics & Gynecology
DX: O72.1 Other immediate postpartum hemorrhage (principal); E03.9 Hypothyroidism, unspecified; Z91.011 Allergy to milk products; Z91.018 Allergy to other foods; Z79.899 Other long term (current) drug therapy
CPT/HCPCS: 36415; 58120; 85025; J0690; J1100; J1885; J2250; J2405; J3010; J7120; J2704